=== PATIENT | male | born 1970 | race Caucasian/White ===

== ENCOUNTER 2019-04-04 12:23 | Inpatient (IN) | payer MEDICAID ==
--- NOTE | 2018-04-05 19:30 | NUR ---
Opening Shift Note Assumed care of patient, awake and alert. No S/S of distress/SOB or pain. Dr. Castillo has seen the patient and waiting on some of the test results. No facial drooping noted. Instructed on POC and to call for assist PRN, will continue to monitor for changes Q1hr and PRN.
[~2019-04-04] VITALS: Ht 177.8 cm; Wt 185.8 kg
[2019-04-04 13:21] LABS: Basophils # (auto) 0 uL; Basophils % (auto) 0.3 % (0.0-2.0); Eosinophils # (auto) 0.2 uL; Eosinophils % (auto) 1.7 % (0.0-7.0); Hematocrit 43.7 % (41.0-53.0); Hemoglobin 14.9 g/dL (13.5-17.5); Lymphocytes # (auto) 1.5 uL; Lymphocytes % (auto) 15.9 % (10.0-50.0); Mean Corpuscular Hemoglobin 29.7 pg (28.0-32.0); Mean Corpuscular Hgb Conc. 34.1 g/dL (32.0-36.0); Mean Corpuscular Volume 87.2 fL (80.0-100.0); Monocytes # (auto) 0.6 uL; Monocytes % (auto) 6.6 % (0.0-12.0); Neutrophils % (auto) 75.5 % (37.0-80.0); Nucleated Red Blood Cells % 0.2 %; Platelet Count (auto) 215 10^3/uL (140-450); Red Blood Cells 5.02 10^6/uL (4.5-5.90); Red Cell Distribution Width 13.6 % (11.8-14.3); White Blood Cell 9.3 10^3/uL (4.4-10.8)
[2019-04-04 13:44] LABS: Partial Thromboplastin Time 27.3 sec (23.64-32.05)
[2019-04-04 13:50] LABS: Alanine Aminotransferase 48 U/L (16-61); Albumin 3.9 g/dL (3.4-5.0); Anion Gap 8 (5-15); Aspartate Aminotransferase 21 U/L (15-37); BUN/Creatinine Ratio 7.8; Bilirubin, Total 0.3 mg/dL (0.2-1.0); Blood Urea Nitrogen 9 mg/dL (7-18); Carbon Dioxide 25 mmol/L (21-32); Chloride 109 mmol/L (98-107); GFR African American 87 mL/min; GFR Non-African American 72 mL/min; Glucose 96 mg/dL (74-106); Magnesium 2.5 mg/dL (1.6-2.6); Potassium 3.8 mmol/L (3.5-5.1); Sodium 142 mmol/L (136-145); Total Protein 7.9 g/dL (6.4-8.2)
[2019-04-04 14:15] LABS: Alkaline Phosphatase 85 U/L (45-117)
[2019-04-04 14:16] LABS: Calcium 8.7 mg/dL (8.5-10.1)
[2019-04-04] MEDS ORDERED: IPRATROPIUM BROM 0.5 MG/2.5ML INH SOL NEB PRN (16:15)
[2019-04-04] MEDS ORDERED: HYDROcodone-ACET 5/325MG TAB PO PRN (16:15)
[2019-04-04] MEDS ORDERED: NITROGLYCERIN 0.4 MG SL TAB SL PRN (16:15)
[2019-04-04] MEDS ORDERED: ONDANSETRON HCL 4 MG/2 ML VIAL IV PRN (16:15)
[2019-04-04] MEDS ORDERED: ACETAMINOPHEN 500 MG TAB PO PRN (16:15)
[2019-04-04] MEDS ORDERED: MORPHINE SULF INJ 2 MG/ML SYRINGE 1ML IV PRN ×2 (16:15)
[2019-04-04] MEDS ORDERED: ALBUTEROL SULF 2.5 MG/0.5ML(0.5%) NEB SOLN NEB PRN (16:15)
[2019-04-04 19:11] VITALS: BP 121/75
--- NOTE | 2019-04-04 21:30 | NUR ---
Telemetry admit from ER OLEKSANDR FUNG admitted to Telemetry. Patient oriented to JAZZ ARNOLD, primary RN, unit, room 281, bed B, and unit policies regarding patient care and visiting hours. Patient now on continuous telemetry monitoring, tele box #80 and telemetry reading on arrival to unit is SR. Patient weighed by bedscale and encouraged to call if they need something. Call light explained. All questions and concerns addressed, patient verbalized understanding.
--- NOTE | 2019-04-04 21:36 | NUR ---
PRN MED NEB ASSESSMENT PT DENIES SOB AT THIS TIME NO DISTRESS NOTED. RA POX 95% HR 65 RR 18. TX NOT GIVEN.
[2019-04-04 21:40] VITALS: BP 121/70
[2019-04-04] MEDS: ATORVASTATIN 20 MG TAB PO SCH (21:47)
[2019-04-04 21:59] VITALS: BP 121/70
[2019-04-05] MEDS ORDERED: SERT100T PO (02:57)
[2019-04-05] MEDS ORDERED: QUET50TA PO (02:57)
[2019-04-05] MEDS ORDERED: LORA0.5T12 PO (02:57)
[2019-04-05 04:30] LABS: Cholesterol 216 mg/dL (< 200)
[2019-04-05 04:33] LABS: HDL Cholesterol 26 mg/dL (40-59); Triglycerides 916 mg/dL (< 150)
[2019-04-05 05:00] VITALS: BP 106/70
--- NOTE | 2019-04-05 07:15 | NUR ---
Opening Note Received report on the patient. Awake lying in bed. Patient shows no signs of distress at this time. Discussed plan of care with the patient. Bed in lowest position, side rails up x2, and the call light is within reach. Will continue to monitor.
--- NOTE | 2019-04-05 08:40 | NUR ---
NEUROLOGY Dr Corona at bedside for Neurology consult, new orders received and followed through. Patient updated on plan of care, verbalized understanding.
[2019-04-05 08:51] LABS: Urine Bacteria NONE SEEN /hpf (None Seen); Urine Blood Negative /uL (Negative); Urine Specific Gravity 1.011 (1.001-1.035); Urine Sperm PRESENT /hpf (None Seen); Urine WBC 4 /hpf (0 - 3)
[2019-04-05 09:01] LABS: Alcohol, Urine < 3.0 mg/dL (0-5); Amphetamine Screen, Urine NEGATIVE (NEGATIVE); Barbiturate Scree,Urine NEGATIVE (NEGATIVE); Benzodiazephine Screen, Urine NEGATIVE (NEGATIVE); Cannabinoid Screen, Urine NEGATIVE (NEGATIVE); Cocaine Screen, Urine NEGATIVE (NEGATIVE); Opiate Scree,Urine NEGATIVE (NEGATIVE); Phencyclidine Screen, Urine NEGATIVE (NEGATIVE)
[2019-04-05 09:15] VITALS: BP 125/78
--- NOTE | 2019-04-05 09:45 | NUR ---
Respiratory note: Assessed pt for prn medneb tx. HR 59, RR 16, POX 95% on room air. Breath sounds clear/diminished throughout. Pt denies any SOB. No s/s of respiratory distress noted. Medneb tx not indicated at this time. Advised pt to call for RT if needed.
[2019-04-05] MEDS: ASPirin-EC 81 mg tab PO SCH (10:29)
[2019-04-05] MEDS: FAMOTIDINE 20 MG TAB PO SCH (10:30)
[2019-04-05 12:36] VITALS: BP 112/58
[2019-04-05] MEDS ORDERED: LORazepam 2MG/ML-1ML VIAL IV PRN (12:45)
[2019-04-05] MEDS ORDERED: GADOTERIDOL 279.3mg/mL 20ml Vial IV ONE (12:47)
[2019-04-05] MEDS ORDERED: LORazepam 2MG/ML-1ML VIAL ONE (12:47)
--- NOTE | 2019-04-05 15:32 | NUR ---
ROUNDS Dr Cline at bedside for rounds, new orders received and followed through. Patient updated on plan of care, verbalized understanding.
--- NOTE | 2019-04-05 18:26 | NUR ---
PT ASSESSED FOR PRN MED NEB TX. SPO2 98% ON RA, HR 56. PT DENIES ANY RESPIRATORY DISTRESS. NO TX INDICATED. PT IS AWARE TO HAVE RT PAGED IF TX NEEDED.
--- NOTE | 2019-04-05 19:32 | NUR ---
Care endorsed to ARGELIA An, night nurse.
--- NOTE | 2019-04-05 22:00 | NUR ---
New order for ativan po. Ok to give ativan one time order now.
[2019-04-05] MEDS: ATORVASTATIN 20 MG TAB PO SCH (22:11)
[2019-04-05] MEDS ORDERED: LORazepam 0.5 MG TAB PO PRN (22:30)
[2019-04-05 22:53] VITALS: BP 122/69
--- NOTE | 2019-04-06 04:00 | NUR ---
Patients heart rate dropped down into the high 30's while sleeping. Dipped down often into the mid to high 40's mostly. When checking on the patient denies feeling abnormal, denies chest pain. Continuing to monitor. Call light within reach
[2019-04-06 06:11] VITALS: BP 115/78
--- NOTE | 2019-04-06 07:28 | NUR ---
Opening shift note. Assumed care of patient from maintenance technician 2nd shift nurse. Patient alert and oriented x4, no signs of distress noted. Patient updated on plan of care and verbalizes understanding. Bed in lowest position and side rail upx2, call light in reach.
[2019-04-06 08:00] VITALS: BP 125/80
[2019-04-06] MEDS: ASPirin-EC 81 mg tab PO SCH (09:20)
[2019-04-06] MEDS: FAMOTIDINE 20 MG TAB PO SCH (09:21)
[2019-04-06] MEDS ORDERED: ATO40T PO (11:43)
[2019-04-06 12:42] VITALS: BP 127/87
--- NOTE | 2019-04-06 13:39 | NUR ---
Discharge Patient discharged home. Education and follow up instructions were given to patient. IV removed, catheter in tact and pressure dressing applied, patient tolerated well. Tele box #80 removed. Gait is steady, no signs of facial drooping or slurred speech. Addendum: 04/06/19 at 1408 by NAINA ANDREW RN RN Patient discharge time at 1358
--- NOTE | 2019-04-06 13:44 | NUR ---
Patient cleared for discharge Per Dr Corona, patient is cleared for discharge.
--- NOTE | 2019-04-06 14:45 | NUR ---
Assessment Pt is a 48 yr old alert and oriented male living with his family. Pt was about to be d/c'd, so assessment was short. Pt is ambulatory and independent with ADL's. Pt stated that he "has got things taken care of at home and has no needs." Pt came in with numbness in his right side and stated that it has since gone away. Pt is employed and doesn't have an AD on file. Pt's family will transport pt home. No needs or concerns at this time. Addendum: 04/06/19 at 1449 by HARJEET RODRIGUES Amended: Links added.
== END 2019-04-06 13:59 | disposition home or self-care (01) | DRG 58 ==
LOC: ER 12:23 → TELE 12:24 → TELE-WESTW 20:46
PROVIDERS: ADMIT Nurse Practitioner Acute Care; ATTEND Internal Medicine
DX: R27.0 Ataxia, unspecified (principal); R29.2 Abnormal reflex; E78.00 Pure hypercholesterolemia, unspecified; E78.5 Hyperlipidemia, unspecified; I10 Essential (primary) hypertension; J45.909 Unspecified asthma, uncomplicated; R20.2 Paresthesia of skin; H55.00 Unspecified nystagmus; F17.200 Nicotine dependence, unspecified, uncomplicated; G89.29 Other chronic pain; M54.5 Low back pain; Z82.49 Family history of ischemic heart disease and other diseases of the circulatory system; Z91.14 Patient's other noncompliance with medication regimen; Z98.1 Arthrodesis status; Z83.3 Family history of diabetes mellitus; Z80.1 Family history of malignant neoplasm of trachea, bronchus and lung; Z80.0 Family history of malignant neoplasm of digestive organs; Z79.899 Other long term (current) drug therapy
CPT/HCPCS: 36415; 70450; 70553; 71045; 72142; 80053; 80061; 80307; 81001; 83735; 84484; 85025; 85610; 85730; 93005; 93306; 94761; G0378